=== PATIENT | female | born 1960 | race Caucasian/White ===

== ENCOUNTER 2019-09-06 08:53 | Outpatient (CLI) | payer OTHER ==
--- NOTE | 2019-09-06 09:14 | RAD ---
Chest 2 views HISTORY: Cough. FINDINGS: No comparison. Cardiac silhouette and pulmonary vasculature are unremarkable. Mediastinum i s midline. No confluent airspace consolidation, pneumothorax, or pleural fluid. IMPRESSION: No active cardiopulmonary abnormalities are demonstrated.
== END 2019-09-06 08:54 | disposition home or self-care (01) ==
LOC: MADRAD 08:53
PROVIDERS: ATTEND Physician Assistant Medical
DX: J20.9 Acute bronchitis, unspecified (principal)
CPT/HCPCS: 71046